=== PATIENT | male | born 2000 | race Caucasian/White ===

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

== ENCOUNTER 2019-11-27 11:50 | Outpatient (CLI) | payer BC | END 2019-11-27 11:51 | disposition home or self-care (01) | LOC: COV 11:50 | PROVIDERS: ATTEND Family Medicine | DX: R05 Cough (principal); R53.83 Other fatigue; J02.9 Acute pharyngitis, unspecified; R09.81 Nasal congestion; Z20.828 Contact with and (suspected) exposure to other viral communicable diseases ==

== ENCOUNTER 2021-01-23 13:32 | Emergency (ER) | payer BC ==
[2021-01-23 13:44] VITALS: BP 147/93
--- NOTE | 2021-01-23 13:49 | ED Physician Documentation ---
PD HPI UPPER EXT INJURY - Stated complaint Stated Complaint: L FOOT INJ - Chief complaint Chief Complaint: Laceration - History obtained from History obtained from: Patient - History of Present Illness Location: Left (Stool got dropped on his left great toe and he has pain and an injury there. No other injuries. Happened just prior to arrival.) Review of Systems Constitutional: reports: Reviewed and negative Eyes: reports: Reviewed and negative Ears: reports: Reviewed and negative PD PAST MEDICAL HISTORY - Present Medications Home Medications: Ambulatory Orders Medication Instructions Recorded Confirmed Hydrocodone/Acetaminophen 1 - 2 each PO Q6H PRN #10 tablet 02/25/14 [Hydrocodon-Acetaminophen 5-325] Ibuprofen [Motrin] 3 tab PO Q6H PRN #90 tablet 02/25/14 Bacitracin Zinc Oint 1 applic TOP BID #1 gm 01/23/21 - Allergies Allergies/Adverse Reactions: Allergies Allergy/AdvReac Type Severity Reaction Status Date / Time No Known Drug Allergies Allergy Verified 01/23/21 13:43 - Social History Does the pt smoke?: No Smoking Status: Never smoker Does the pt drink ETOH?: No Does the pt have substance abuse?: No - Immunizations Immunizations are current?: Yes - POLST Patient has POLST: No PD ED PE NORMAL - Vitals Vital signs reviewed: Yes - General General: Alert and oriented X 3, No acute distress - Extremities Extremities: Other (He has a near complete toenail avulsion, the left great toenail was pre much just hanging by a thread. After removal of the toenail there was a nailbed laceration.) - Neuro Neuro: Alert and oriented X 3, Normal speech Results - Vitals Vitals: Vital Signs - 24 hr 01/23/21 13:40 Temperature 36.9 C Heart Rate 114 H Respiratory 16 Rate Blood Pressure 147/93 H O2 Saturation 100 Oxygen O2 Source Room air Procedures - General procedure General procedure: The left great toe was blocked using plain lidocaine in standard fashion with excellent anesthesia. The toenail was completely avulsed and removed and the nailbed laceration was closed with 4x5 0 Vicryl sutures. Departure - Departure Disposition: 01 Home, Self Care Clinical Impression: Toenail avulsion Qualifiers: Encounter type: initial encounter Qualified Code(s): S91.209A - Unspecified open wound of unspecified toe(s) with damage to nail, initial encounter Nailbed laceration, toe Qualifiers: Encounter type: initial encounter Qualified Code(s): S91.219A - Laceration without foreign body of unspecified toe(s) with damage to nail, initial encounter Condition: Good Record reviewed to determine appropriate education?: Yes Instructions: ED Avulsion Nail Complete Prescriptions: Bacitracin Zinc Oint 1 applic TOP BID #1 gm Comments: You keep the current dressing on for about a day, after which you can wash it briefly with soap and water. Then apply the prescribed antibiotic ointment and a bandage. Wear the boot when up and about, but no need to wear it while sleeping, bathing, or if just relaxing. Sutures are absorbable and do not require removal. Follow-up with your doctor in a week for a wound check.
--- NOTE | 2021-01-23 14:34 | XRAY Report ---
PROCEDURE: Toe(s) LT INDICATIONS: big toe inj TECHNIQUE: 3 views of the left great toe COMPARISON: None FINDINGS: Bones: No fractures or dislocations. No suspicious bony lesions. Soft tissues: No suspicious soft tissue densities. IMPRESSION: No fracture of the left great toe. Reviewed by: Adrian Duckworth on 01/23/2021 1:33 PM [facility] Approved by: Adrian Duckworth on 01/23/2021 1:33 PM [facility] Station ID: [id number]
== END 2021-01-23 14:40 | disposition home or self-care (01) ==
LOC: ED 13:32
DX: S91.212A Laceration without foreign body of left great toe with damage to nail, initial encounter (principal); S91.202A Unspecified open wound of left great toe with damage to nail, initial encounter; W20.8XXA Other cause of strike by thrown, projected or falling object, initial encounter
CPT/HCPCS: 11730; 73660; 99283